=== PATIENT | female | born 1985 | race Caucasian/White ===

== ENCOUNTER 2017-01-09 21:36 | Emergency (ER) | payer MEDICARE, MEDICAID ==
[~2017-01-09 21:36] MED LIST: ATIVAN0.5 MG; CYCLOBENZAPRINE10 M1 PO; GLUCOPHAGE500 M3 PO; MIRALAX17 G2 PO; NORCO 5-325 TA1 EACH PO; OMEPRAZOLE20 M3 PO; ZOFRAN ODT4 MG/UDTAB PO; ZOLOFT25 MG
[2017-01-09] MEDS ORDERED: LINZESS145 MC1 PO (22:05)
[2017-01-09 22:21] LABS: BASO % 0.3 % (0-2); EOS % 1.3 % (0-7); EOSINOPHIL ABSOLUTE COUNT 0.1 tho/cmm (0.0-0.7); IMMATURE GRANULOCYTES ABSOLUTE 0.03 tho/cmm (0-0.03); IMMATURE GRANULOCYTES PERCENT 0.3 % (0-0.3); LYMPH ABSOLUTE COUNT 3.5 tho/cmm (0.8-4.5); MCH (MEAN CORPUSCULAR HGB) 27.5 pg (28.0-32.0); MCV (MEAN CELL VOLUME) 78.4 fl (82.0-96.0); MEAN PLATELET VOLUME 9.7 cmc (9.4-12.4); MONO % 6.6 % (0-12); MONOCYTE ABSOLUTE COUNT 0.7 tho/cmm (0.0-1.2); NEUTROPHIL ABSOLUTE COUNT 5.8 tho/cmm (1.6-8.0); NEUTROPHIL-AUTOMATED 5.8 tho/cmm (1.6-8.0); NEUTROPHILS % 57.5 % (40-80); PLATELET COUNT 225 tho/cmm (150-450); RED CELL DISTRIBUTION WIDTH 14.4 % (12.4-16.4); WHITE BLOOD COUNT 10.1 tho/cmm (4.0-10.0)
[2017-01-09 23:10] LABS: URINE BILIRUBIN NEGATIVE (NEG); URINE BLOOD SMALL (NEG); URINE GLUCOSE (UA) NEGATIVE (NEG); URINE KETONE SMALL (NEG); URINE LEUKOCYTE ESTERASE POSITIVE (NEG); URINE NITRITE POSITIVE (NEG); URINE PROTEIN SMALL (NEG)
[2017-01-09 23:11] LABS: URINE APPEARANCE HAZY; URINE COLOR YELLOW
[2017-01-09 23:17] LABS: URINE EPITHELIAL CELLS 0-1 /[HPF] (0-10)
[2017-01-09 23:18] LABS: URINE BACTERIA 1+; URINE MUCUS 1+; URINE WBC 0-1 /[HPF] (0-5)
[2017-01-10] MEDS ORDERED: MACROBID 100 M100 M1 PO (01:17)
[2017-01-10] MEDS ORDERED: PYRIDIUM200 M2 PO (01:20)
[2017-01-31] MEDS ORDERED: XARELTO20 M2 PO (21:40)
[2017-01-31] MEDS ORDERED: BIOTIN1 M2 PO (21:41)
[2017-01-31] MEDS ORDERED: CLEOCIN HCL300 M1 PO (23:34)
[2017-02-14] MEDS ORDERED: CIPRO500 M2 PO (02:50)
[2017-04-15] MEDS ORDERED: ASPIRIN81 M1 PO (17:34)
[2017-04-15] MEDS ORDERED: XARELTO20 M2 PO (17:34)
== END 2017-01-10 01:26 ==
LOC: EDMED 21:36
PROVIDERS: Emergency Medicine
DX: R10.2 Pelvic and perineal pain (principal)
CPT/HCPCS: P9612